=== PATIENT | female | born 1950 | race Caucasian/White ===

== ENCOUNTER 2017-06-09 07:54 | Emergency (ER) | payer BC, OTHER ==
[2017-06-09 08:13] VITALS: BP 139/84
--- NOTE | 2017-06-09 08:18 | UC ---
Respiratory Complaint HPI - HPI Summary HPI Summary: 67 y/o female presents to the urgent care c/o productive cough mild SOB, WAYNE, sore throat and nasal congestion for the past week. Pt reports symptoms started w/ the common cold. However, her cough has worsen w/ green phlegm. She had fever and chills at the beginning. She has been taking OTC cough Syrup to alleviate symptoms. She has been coughing so much that she has Rt side chest pain. Pain w/ swallowing is 4/10. Pt denies Chest pain, abdominal pain, N/V/D. - History of Current Complaint Stated Complaint: CONGESTION Time Seen by Provider: 06/09/17 08:09 Hx Obtained From: Patient ?: No - Pt is menopausal Onset/Duration: Gradual Onset, Lasting Days - 1 week, Still Present, Worse Since - yesterday Timing: Constant Severity Initially: Mild Severity Currently: Moderate Pain Intensity: 4 - sore throat Pain Scale Used: 0-10 Numeric Character: Cough: Productive, Sputum Description: - yellowish Aggravating Factors: Recumbent Position Alleviating Factors: OTC Meds Associated Signs And Symptoms: Positive: Fever, URI, Nasal Congestion - Risk Factors Pulmonary Embolism Risk Factors: Negative Cardiac Risk Factors: Hypertension Pseudomonas Risk Factors: Negative Tuberculosis Risk Factors: Negative - Allergies/Home Medications Allergies/Adverse Reactions: Allergies Allergy/AdvReac Type Severity Reaction Status Date / Time aminophylline Allergy Intermediate Rash Verified 06/09/17 08:15 terbutaline Allergy Intermediate Rash Verified 06/09/17 08:15 Penicillins Allergy Rash Verified 06/09/17 08:15 Home Medications: Home Medications Amlodipine Besylate [Norvasc 5 mg tab] 5 mg PO DAILY 06/09/17 [History Confirmed 06/09/17] PMH/Surg Hx/FS Hx/Imm Hx Previously Healthy: Yes Cardiovascular History: Hypertension - Surgical History Surgical History: Yes Surgery Procedure, Year, and Place: 1969, 1979 - RIGHT knee sugeries. Has no ACL. LUMP REMOVED FROM LOWER BACK. DEVIATED SEPTUM REPAIR. 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 - Family History Known Family History: Positive: Hypertension - Social History Occupation: Retired Lives: With Family Alcohol Use: None Substance Use Type: None Review of Systems Constitutional: Fever, Chills, Fatigue, Other - body aches Skin: Negative Eyes: Negative ENT: Sore Throat, Nasal Discharge Respiratory: Shortness Of Breath, Cough Cardiovascular: Negative Gastrointestinal: Negative Genitourinary: Negative Motor: Negative Neurovascular: Negative Musculoskeletal: Negative Neurological: Headache Psychological: Negative Is Patient Immunocompromised?: No All Other Systems Reviewed And Are Negative: Yes Physical Exam Triage Information Reviewed: Yes - Additional Comments Vital Signs Reviewed: Yes General: well developed, well nourished female sitting in the examining table w/ o any apparent distress Eyes: Positive: Conjunctiva Clear - PERRLA, EOMI, fundi grossly normal ENT: Positive: Normal ENT inspection, Hearing grossly normal, Pharynx normal, Nasal congestion - edematous and erythematous nasal mucosa, Nasal drainage - yellowish drainage, TMs normal. Negative: Tonsillar swelling, Tonsillar exudate Neck: Positive: Supple, Nontender, No Lymphadenopathy Respiratory: no orthopnea or dyspnea. Able to speak in full sentences, no retractions or accessory muscle use, no tripod position, stridor, or head bobbing. Positive breath sounds bilaterally, mild B/L Posterior upper lungs w/ rhonchi, no wheezes, no rales. Cardiovascular: Positive: RRR, No Murmur, Pulses Normal, Brisk Capillary Refill Abdomen Description: Positive: Nontender, No Organomegaly, Soft. Negative: CVA Tenderness (R), CVA Tenderness (L) Bowel Sounds: Positive: Present Musculoskeletal Exam: Normal Musculoskeletal: Positive: Strength Intact, ROM Intact, No Edema Neurological Exam: Normal Psychological Exam: Normal Skin Exam: Normal Respiratory Course/Dx - Course Course Of Treatment: 67 y/o female presents to the urgent care c/o productive cough mild SOB, WAYNE, sore throat and nasal congestion for the past week. Pt reports symptoms started w/ the common cold. However, her cough has worsen w/ green phlegm. She had fever and chills at the beginning. She has been taking OTC cough Syrup to alleviate symptoms. She has been coughing so much that she has Rt side chest pain. Pain w/ swallowing is 4/10. Pt denies Chest pain, abdominal pain, N/V/D. Hx obtained. Pt w/ B/L posterior upper lungs w/ mild rhonchi. Chest X-ray ordered to r/o pneumonia. Impression: No active cardiopulmonary disease observed as per radiologist.Pt with Acute bronchitis on examination. Pt Rx Doxycycline PO and Tessalon tabs to alleviate cough. Pt advised to increase fluid intake and eat well. if not improvement or worsening of symptoms to return to the urgent care or f/u with PCP for further management. Pt understood and agreed with plan of care - Differential Dx/Diagnosis Differential Diagnosis/HQI/PQRI: Asthma, Bronchitis, Influenza, Lower Resp Infection, Sinusitis, Other - pneumonia Provider Diagnoses: 1-Acute bronchitis. 2-Cough Discharge - Discharge Plan Condition: Stable Disposition: HOME Prescriptions: Benzonatate CAP* [Tessalon 100 MG CAP*] 100 mg PO TID PRN #21 cap PRN Reason: Cough DOXYcycline CAP(*) [DOXYcycline 100MG CAP(*)] 100 mg PO BID #20 cap Patient Education Materials: Acute Bronchitis (ED) Referrals: Kenzie Butcher MD [Primary Care Provider] - 3 Days Additional Instructions: 1-Please take full course of antibiotic to avoid resistance. 2-Take Tessalon PO tabs as directed and use the albuterol inhaler to alleviate cough. Increase fluid intake, rest and eat well. 3- If symptoms do not improve or worsen or your develop SOB with fever and severe wheezing please go immediately to the ER further evaluation and treatment. 4- F/u with your PCP in 2-3 days for further management.
--- NOTE | 2017-06-09 08:49 | RAD ---
INDICATION: Productive cough. Fever COMPARISON: 2017 2013 TECHNIQUE: PA and lateral dual-energy views were obtained. FINDINGS: Bones/Soft Tissues: There are no acute bony findings. Cardiomediastinal: The cardiomediastinal silhouette is normal. Lungs: There are no infiltrates. Pleura: There are no pleural effusions. Other: Mild elevation right hemidiaphragm, unchanged IMPRESSION: NO ACTIVE DISEASE.
== END 2017-06-09 09:05 | disposition home or self-care (01) ==
LOC: UCEAST 07:54
DX: J20.9 Acute bronchitis, unspecified (principal); R05 Cough; I10 Essential (primary) hypertension; Z88.0 Allergy status to penicillin; Z88.8 Allergy status to other drugs, medicaments and biological substances
CPT/HCPCS: 71046; 99212; G0463

== ENCOUNTER 2017-09-20 12:41 | Emergency (ER) | payer BC ==
[2017-09-20 13:19] VITALS: BP 131/67
--- NOTE | 2017-09-20 13:48 | UC ---
Complaint Female HPI - HPI Summary HPI Summary: 67 y/o female presents to the urgent care c/o frequency and burning on urination since 09/18/2017. Pt states she felt hot w/ subjective lower grade fever last night. She took Motrin PO to alleviate symptoms. However this morning symptoms worsen w/ mild lower back pain. Pain is 3 w/ urination. Pt denies flank pain. SB, chest pain, vaginal discharge, abdominal pain, N/V/D. Pt states she feels hot now. - History Of Current Complaint Chief Complaint: UCGU Stated Complaint: FEVER, AND ACHES Time Seen by Provider: 09/20/17 13:46 Hx Obtained From: Patient ?: No Onset/Duration: Gradual Onset, Lasting Days - 3 days, Still Present, Worse Since - today Timing: Intermittent, Lasting Seconds Severity Initially: Mild Severity Currently: Mild Pain Intensity: 3 Pain Scale Used: 0-10 Numeric Character: Burning Aggravating Factor(s): Urination Alleviating Factor(s): Nothing Associated Signs And Symptoms: Positive: Fever - low grade subjective fever at home, Back Pain - mild lower back. Negative: Vaginal Bleeding/Discharge, Vaginal Discharge - Risk Factors Ectopic Risk Factor: Negative Ovarian Torsion Risk Factor: Negative - Allergies/Home Medications Allergies/Adverse Reactions: Allergies Allergy/AdvReac Type Severity Reaction Status Date / Time aminophylline Allergy Intermediate Rash Verified 09/20/17 13:19 terbutaline Allergy Intermediate Rash Verified 09/20/17 13:19 Penicillins Allergy Rash Verified 09/20/17 13:19 PMH/Surg Hx/FS Hx/Imm Hx Previously Healthy: Yes Cardiovascular History: Hypertension - Surgical History Surgical History: Yes Surgery Procedure, Year, and Place: 1969, 1979 - RIGHT knee sugeries. Has no ACL. LUMP REMOVED FROM LOWER BACK. DEVIATED SEPTUM REPAIR. 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 - Family History Known Family History: Positive: Hypertension - Social History Occupation: Employed Full-time Lives: With Family Alcohol Use: None Substance Use Type: None Smoking Status (MU): Never Smoked Tobacco Review of Systems Constitutional: Fever - subjective low grade fever at home Skin: Negative Eyes: Negative ENT: Negative Respiratory: Negative Cardiovascular: Negative Gastrointestinal: Negative Genitourinary: Dysuria, Frequency, Urgency Motor: Negative Neurovascular: Negative Musculoskeletal: Other: - mild lower back pain Neurological: Negative Psychological: Negative Is Patient Immunocompromised?: No All Other Systems Reviewed And Are Negative: Yes Physical Exam - Summary Physical Exam Summary: VITAL SIGNS: Reviewed. GENERAL: Patient is a well developed and nourished female who is sitting comfortable in the examining table. Patient is not in any acute respiratory distress. HEAD AND FACE: No signs of trauma. No ecchymosis, hematomas or skull depressions. No sinus tenderness. EYES: PERRLA, EOMI x 2, No injected conjunctiva, clear watery eyes, no nystagmus. No photophobia. EARS: Hearing grossly intact. Ear canals and tympanic membranes are within normal limits. MOUTH: pharynx with no erythema, no exudates,no palatal petechiae. no B/L tonsillar enlargement Uvula in midline. NECK: Supple, trachea is midline, no lymphadenopathy, no JVD, no carotid bruit, no c-spine tenderness, neck with full ROM. CHEST: Symmetric, no tenderness at palpation LUNGS: Clear to auscultation bilaterally. No wheezing or crackles. CVS: Regular rate and rhythm, S1 and S2 present, no murmurs or gallops appreciated. ABDOMEN: Soft, non-tender. No signs of distention. No rebound no guarding, and no masses palpated. Bowel sounds are normal. BACK:no scoliosis or lesions, non tender to palpation, No B/L CVA tenderness EXTREMITIES: FROM in all major joints, no edema, no cyanosis or clubbing. NEURO: Alert and oriented x 3. No acute neurological deficits. Speech is normal and follows commands. SKIN: Dry and warm Triage Information Reviewed: Yes Vital Signs: Initial Vital Signs Temp 98.3 F 09/20/17 13:14 Pulse 104 09/20/17 13:14 Resp 17 09/20/17 13:14 BP 131/67 09/20/17 13:14 Pulse Ox 96 09/20/17 13:14 Complaint Female Dx - Course Course Of Treatment: 67 y/o female presents to the urgent care c/o frequency and burning on urination since 09/18/2017. Pt states she felt hot w/ subjective lower grade fever last night. She took Motrin PO to alleviate symptoms. However this morning symptoms worsen w/ mild lower back pain. Pain is 3 w/ urination. Pt denies flank pain. SB, chest pain, vaginal discharge, abdominal pain, N/V/D. Pt states she feels hot now. Hx obtained.PE: WNL. UA ordered. UA results: Blood 2+, Leukoesterase 3+, nitrates 3+. Pt Rx Bactrim PO x 7 days. Pyridium 100mg PO TID x 2 days. Advised to increase fluid intake. Urine sent for culture if any abnormality Pt will be notified for further treatment. Pt advised If symptoms do not improve to return to the urgent care or f/u with PCP. Pt understood and agreed. Left the clinic ambulating and hemodynamically stable , A&OX3 - Differential Dx/Diagnosis Differential Diagnosis/HQI/PQRI: Renal Colic, Ureteral Stone, Urinary Tract Infection, Other - pyelonephritis Provider Diagnoses: 1- Urinary tract infection. 2-Dysuria Discharge - Sign-Out/Discharge Documenting (check all that apply): Discharge/Admit/Transfer - D/C home - Discharge Plan Condition: Stable Disposition: HOME Prescriptions: Phenazopyridine TAB* [Pyridium 100 mg TAB*] 100 mg PO TID #6 tab Sulfamethox/Trimethoprim DS* [Bactrim DS 800/160 TAB*] 1 tab PO BID #14 tab Patient Education Materials: Urinary Tract Infection in Women (ED) Referrals: Kenzie Butcher MD [Primary Care Provider] - 3 Days Additional Instructions: 1- Please take Bactrim 100mg PO x 7 days. Pyridium 100 mg PO TID x 2 days to alleviate urinary symptoms. Increase increase fluid intake. drink cranberry juice. 2-Urine sent for culture if any abnormality, you will be notified for further treatment. 3-If symptoms do not improve please return to the urgent care or f/u with PCP for further management. 4-If you develop severe fever, flank pain despite taking antibiotic please go immediately to the Er for further management - Billing Disposition and Condition Condition: STABLE Disposition: Home
[2017-09-20] MEDS ORDERED: Acetaminophen TAB* 325 MG PO ONE (13:55)
--- NOTE | 2017-09-22 17:46 | UC ---
- Progress Note Progress Note: 09/22/2017 Urine culture : positive for klebsiella pneumonia. Pt Rx Bactrim which covers. Culture sensitivity still pending. Brittaney Rushing PA-C Discharge - Sign-Out/Discharge Documenting (check all that apply): Discharge/Admit/Transfer - D/C home - Discharge Plan Condition: Stable Disposition: HOME Prescriptions: Phenazopyridine TAB* [Pyridium 100 mg TAB*] 100 mg PO TID #6 tab Sulfamethox/Trimethoprim DS* [Bactrim DS 800/160 TAB*] 1 tab PO BID #14 tab Patient Education Materials: Urinary Tract Infection in Women (ED) Referrals: Kenzie Butcher MD [Primary Care Provider] - 3 Days Additional Instructions: 1- Please take Bactrim 100mg PO x 7 days. Pyridium 100 mg PO TID x 2 days to alleviate urinary symptoms. Increase increase fluid intake. drink cranberry juice. 2-Urine sent for culture if any abnormality, you will be notified for further treatment. 3-If symptoms do not improve please return to the urgent care or f/u with PCP for further management. 4-If you develop severe fever, flank pain despite taking antibiotic please go immediately to the Er for further management - Billing Disposition and Condition Condition: STABLE Disposition: Home
== END 2017-09-20 14:05 | disposition home or self-care (01) ==
LOC: UCEAST 12:41
DX: N39.0 Urinary tract infection, site not specified (principal); B96.1 Klebsiella pneumoniae [K. pneumoniae] as the cause of diseases classified elsewhere; I10 Essential (primary) hypertension; Z88.0 Allergy status to penicillin; Z88.8 Allergy status to other drugs, medicaments and biological substances
CPT/HCPCS: 81003; 87077; 87086; 87186; 99212; A9270-GY; G0463

== ENCOUNTER 2020-04-15 11:19 | Observation (INO) ==
[2020-04-15 14:26] LABS: ABS Lymphocytes 0.5 10^3/ul (1.0-4.8); ABS Monocytes 1.3 10^3/ul (0-0.8); ABS Neutrophils 12.6 10^3/ul (1.5-7.7); Eosinophil % 0.1 %; Hematocrit 41 % (35-47); Hemoglobin 14.4 g/dL (12.0-16.0); Lymphocyte % 3.3 %; Mean Corpuscular HGB Conc 35 g/dL (31-36); Mean Corpuscular Hemoglobin 34 pg (27-31); Mean Corpuscular Volume 96 fL (80-97); Mean Platelet Volume 9.3 fL (7.4-10.4); Platelet Count 146 10^3/uL (150-450); Red Cell Distribution Width 13 % (10-15); White Blood Count 14.4 10^3/uL (3.5-10.8)
[2020-04-15 14:44] LABS: ALT 10 U/L (7-52); AST 13 U/L (13-39); Albumin 3.6 g/dL (3.2-5.2); Albumin/Globulin Ratio 1.1 (1-3); Alkaline Phosphatase 96 U/L (34-104); Anion Gap 8 mmol/L (2-11); BUN/Creatinine Ratio 19.2 (8-20); Blood Urea Nitrogen 25 mg/dL (6-24); C Reactive Protein 269.22 mg/L (<8.01); CO2 Carbon Dioxide 23 mmol/L (22-32); Chloride 102 mmol/L (101-111); EGFR African American 49.3 (>60); EGFR Non-African American 40.7 (>60); Globulin 3.4 g/dL (2-4); Glucose 124 mg/dL (70-100); Lipase < 10 U/L (11.0-82.0); Potassium 3.2 mmol/L (3.5-5.0); Sodium 133 mmol/L (135-145)
[2020-04-15] MEDS ORDERED: NS 0.9% 1000 ml BAG 1,000 ML IV ONE (14:46)
[2020-04-15] MEDS ORDERED: HYDROcodone/ACETAMIN 5/325 mg TAB PO ONE (14:47)
[2020-04-15] MEDS ORDERED: NS 0.9% 1000 ml BAG 1,000 ML IV.FLUID IV ONE (15:05)
[2020-04-15 16:01] LABS: Urine Appearance Turbid; Urine Bilirubin Negative (Negative); Urine Blood 2+ (Negative); Urine Color Amber; Urine Glucose Negative (Negative); Urine Ketones Negative (Negative); Urine Nitrite Positive (Negative); Urine Protein 2+(100 mg/dL) (Negative); Urine Specific Gravity 1.023 (1.010-1.030); Urine Urobilinogen Negative (Negative)
[2020-04-15] MEDS ORDERED: Cefepime 2 GM in Dextrose 2 GM/50 ML BAG IV ONE (16:05)
[2020-04-15] MEDS ORDERED: Ondansetron 4 mg VIAL 2 MG/ML 2 ml VIAL IV PRN ×2 (16:10→21:12)
[2020-04-15 16:12] LABS: Magnesium 1.8 mg/dL (1.9-2.7)
[2020-04-15 16:17] LABS: Urine Bacteria 3+ (Absent); Urine Red Blood Cell 3+(>10/hpf) (Absent); Urine Squamous Epithelial Cell Present (Absent); Urine White Blood Cell 3+(>20/hpf) (Absent)
[2020-04-15] MEDS ORDERED: Morphine 2 MG/ML SYRINGE IV PRN (16:25)
[2020-04-15] MEDS ORDERED: Ondansetron 4 mg VIAL 2 MG/ML 2 ml VIAL ONE (19:05)
[2020-04-15] MEDS ORDERED: Lidocaine 2% PF 5 ML VIAL ONE (19:05)
[2020-04-15] MEDS ORDERED: Propofol 10 MG/ML 20 ML BTL ONE (19:05)
[2020-04-15] MEDS ORDERED: Dexamethasone IV 4 MG/ML VIAL 1 ml VIAL ONE (19:05)
[2020-04-15] MEDS ORDERED: fentaNYL 100 mcg/2 ml 50 MCG/ML VIAL ONE (19:06)
[2020-04-15] MEDS ORDERED: Midazolam 5 mg/5 ml VIAL 1 mg/ml 5 ml VIAL (5 mg) ONE (19:06)
[2020-04-15] MEDS ORDERED: Iohexol 180 (CONTRAST) 10 ML SDV IV ONE (19:35)
[2020-04-15] MEDS ORDERED: Phenylephrine 40 mcg/mL 10mL (400mcg) SYRINGE ONE (19:50)
[2020-04-15] MEDS ORDERED: fentaNYL 100 mcg/2 ml 50 MCG/ML VIAL IV PRN (21:12)
[2020-04-15] MEDS ORDERED: Naloxone 0.4 mg VIAL 0.4 mg/ml 1 ml VIAL IV PRN (21:12)
[2020-04-15 22:14] LABS: Urine Appearance Turbid; Urine Bilirubin Negative (Negative); Urine Blood 3+ (Negative); Urine Color Yellow; Urine Glucose Negative (Negative); Urine Ketones Negative (Negative); Urine Nitrite Negative (Negative); Urine Protein 2+(100 mg/dL) (Negative); Urine Specific Gravity 1.015 (1.010-1.030); Urine Urobilinogen Negative (Negative)
[2020-04-15 22:37] LABS: Urine Bacteria Absent (Absent); Urine Red Blood Cell 3+(>10/hpf) (Absent); Urine White Blood Cell 3+(>20/hpf) (Absent)
[2020-04-15] MEDS: Lactated Ringers 1000 ml BAG 1,000 ML IV SCH (22:47)
[2020-04-16] MEDS: Lactated Ringers 1000 ml BAG 1,000 ML IV SCH ×2 (04:20→16:27)
[2020-04-16] MEDS: Cefepime 2 GM in Dextrose 2 GM/50 ML BAG IV SCH ×2 (04:21→16:27)
[2020-04-16 08:19] LABS: ABS Lymphocytes 0.4 10^3/ul (1.0-4.8); ABS Monocytes 0.4 10^3/ul (0-0.8); ABS Neutrophils 8.7 10^3/ul (1.5-7.7); Hematocrit 36 % (35-47); Hemoglobin 12.4 g/dL (12.0-16.0); Lymphocyte % 4.3 %; Mean Corpuscular HGB Conc 35 g/dL (31-36); Mean Corpuscular Hemoglobin 34 pg (27-31); Mean Corpuscular Volume 97 fL (80-97); Mean Platelet Volume 9.5 fL (7.4-10.4); Platelet Count 120 10^3/uL (150-450); Red Blood Count 3.67 10^6 /uL (3.70-4.87); Red Cell Distribution Width 13 % (10-15); White Blood Count 9.5 10^3/uL (3.5-10.8)
[2020-04-16 08:38] LABS: BUN/Creatinine Ratio 24.4 (8-20); Calcium 8.3 mg/dL (8.6-10.3); EGFR African American 75.3 (>60); EGFR Non-African American 62.3 (>60); Magnesium 1.9 mg/dL (1.9-2.7); Potassium 3.9 mmol/L (3.5-5.0)
[2020-04-17] MEDS: Cefepime 2 GM in Dextrose 2 GM/50 ML BAG IV SCH (05:02)
[2020-04-17] MEDS: Lactated Ringers 1000 ml BAG 1,000 ML IV SCH (06:34)
[2020-04-17 07:59] VITALS: BP 126/63
== END 2020-04-17 09:40 | disposition home or self-care (01) ==
LOC: ED 11:19 → AA 11:19 → SSU 18:55
PROVIDERS: ADMIT Pediatrics; ATTEND Pediatrics